=== PATIENT | female | born 1995 | race Caucasian/White ===

== ENCOUNTER 2023-04-20 23:38 | Emergency (ER) | payer MEDICAID ==
[~2023-04-20] VITALS: Ht 170.2 cm; Wt 95.3 kg
[2023-04-20 23:51] VITALS: BP_SYST 148
--- NOTE | 2023-04-21 00:01 | NUR ---
Placed in room 4 . Placed on monitor technician, blood pressure machine and pulse oximeter. To gown for exam. Side rails up. Report given to Samantha ESCALANTE.
--- NOTE | 2023-04-21 00:01 | NUR ---
ER at bedside examining patient.
[2023-04-21] MEDS ORDERED: KETOROLAC TROMETHAMINE 30 MG VIAL IM ONE (00:30)
[2023-04-21 00:55] LABS: BASOPHILS # (AUTO) 0.1 K/uL (0.0-0.2); BASOPHILS % (AUTO) 0.6 % (0.0-2.0); EOSINOPHILS # (AUTO) 0.1 K/uL (0.0-0.4); EOSINOPHILS % (AUTO) 1.3 % (0.0-4.0); HEMATOCRIT 41.1 % (36-48); HEMOGLOBIN 13.9 g/dL (12.0-16.0); LYMPHOCYTES # (AUTO) 1.7 K/uL (1.0-5.5); LYMPHOCYTES % (AUTO) 19.4 % (20.5-51.5); MEAN CORPUSCULAR HEMOGLOBIN 29 pg (27-31); MEAN CORPUSCULAR HGB CONC 34 % (32-36); MEAN CORPUSCULAR VOLUME 84 fL (79.0-98.0); MONOCYTES # (AUTO) 0.5 K/uL (0.0-1.0); MONOCYTES % (AUTO) 5.4 % (1.7-9.3); NEUTROPHILS # (AUTO) 6.3 K/uL (1.8-7.7); NEUTROPHILS % (AUTO) 73.3 % (40.0-70.0); PLATELET COUNT (AUTO) 223 K/uL (130-430); RED BLOOD CELL COUNT(AUTO) 4.88 MIL/uL (4.2-6.2); RED CELL DISTRIBUTION WIDTH 13.2 % (9.0-15.0); WHITE BLOOD COUNT (AUTO) 8.5 K/uL (4.8-10.8)
[2023-04-21 01:04] LABS: BILIRUBIN,URINE NEGATIVE (NEGATIVE); CLARITY/URINE CLEAR (CLEAR); COLOR,URINE YELLOW (YELLOW); GLUCOSE,URINE NEGATIVE (NEGATIVE); KETONES,URINE NEGATIVE (NEGATIVE); LEUKOCYTE ESTERASE ,URINE NEGATIVE (NEGATIVE); NITRITE, URINE NEGATIVE (NEGATIVE); PROTEIN URINE NEGATIVE (NEGATIVE); UROBILINOGEN,URINE 0.2 (0.2-1.0)
[2023-04-21 01:08] LABS: BLOOD, URINE TRACE (NEGATIVE)
[2023-04-21 01:12] LABS: ALANINE AMINOTRANSFERASE 23 U/L (12-78); ALBUMIN 3.5 g/dL (3.4-4.8); ANION GAP 9 (5-15); ASPARTATE AMINOTRANSFERASE 14 U/L (10-37); CALCIUM 8.4 mg/dL (8.4-11.0); CHLORIDE 106 mmol/L (98-107); CREATININE 0.88 mg/dL (0.55-1.30); GFR AFRICAN AMERICAN 98 mL/min (>90); GLUCOSE 122 mg/dL (70-99); TOTAL BILIRUBIN 0.3 mg/dL (0.0-1.0); UREA NITROGEN, BLOOD 15 mg/dL (8-21)
[2023-04-21 01:15] LABS: LIPASE 90 U/L (73-393)
[2023-04-21 01:27] LABS: BACTERIA,URINE RARE /HPF (None Seen); RBC,URINE 0-3 /HPF (0-3); WBC,URINE 0-3 /HPF (0-3)
[2023-04-21] MEDS ORDERED: HYDROcodone/ACETAMIN 5-325 MG TAB (NORCO/ VICODIN) PO ONE (02:15)
--- NOTE | 2023-04-21 02:50 | NUR ---
PT UNABLE TO RECEIVE [facility]CO DUE TO DRIVEN HERSELF TO ED. PT WAS CONNECTED CONTINUOUSLY TO VS MONITOR.
--- NOTE | 2023-04-21 02:58 | NUR ---
Patient given written and verbal discharge instructions and verbalizes understanding. ER MD discussed with patient the results and treatment provided. Patient in stable condition. ID arm band removed. Patient educated on NONSPECIFIC CHEST pain management and to follow up with PMD. Pain Scale . Opportunity for questions provided and answered. Medication side effect fact sheet provided.
[2023-04-21 04:06] VITALS: BP_SYST 148
== END 2023-04-21 04:06 | disposition home or self-care (01) ==
LOC: SED 23:38
DX: R07.9 Chest pain, unspecified (principal); R10.30 Lower abdominal pain, unspecified; M25.511 Pain in right shoulder; Z88.1 Allergy status to other antibiotic agents; Z79.899 Other long term (current) drug therapy
CPT/HCPCS: 99285; 80053; 81000; 83690; 85025; 85379; 84484; 36415; 81025; 71045; 93005; 96372; J1885

== ENCOUNTER 2023-09-11 08:36 | Emergency (ER) | payer MEDICAID ==
[~2023-09-11] VITALS: Ht 170.2 cm; Wt 97.5 kg
[2023-09-11] MEDS ORDERED: AZITHROMYCIN 250 MG TABLET PO ONE (09:00)
[2023-09-11 09:17] VITALS: BP_SYST 131; PULSE 97; RESP 20; TEMP 98; O2SAT 98
[2023-09-11] MEDS ORDERED: GUAI5SYR PO (10:25)
[2023-09-11] MEDS ORDERED: ZIT250 PO (10:25)
[2023-09-11] MEDS ORDERED: PRED20TA PO (10:25)
[2023-09-11] MEDS ORDERED: BENZ100C92 PO (10:25)
[2023-09-11] MEDS ORDERED: ALBMDI INH (10:25)
[2023-09-11 10:34] LABS: COVID19 ANTIGEN SOFIA FIA NEGATIVE (NEGATIVE)
[2023-09-11 10:35] LABS: INFLUENZA TYPE A Negative (NEGATIVE); INFLUENZA TYPE B NEGATIVE (NEGATIVE)
[2023-09-11 10:41] VITALS: BP_SYST 131; PULSE 97; RESP 20; TEMP 98; O2SAT 98
== END 2023-09-11 10:41 | disposition home or self-care (01) ==
LOC: SED 08:36
DX: J20.9 Acute bronchitis, unspecified (principal); R05.9 Cough, unspecified; R07.89 Other chest pain; R06.02 Shortness of breath; Z88.1 Allergy status to other antibiotic agents; Z79.899 Other long term (current) drug therapy; Z20.822 Contact with and (suspected) exposure to COVID-19
CPT/HCPCS: 99284; 71046; 87426; 36415; 81025; 87804 ×2; Q0144

== ENCOUNTER 2024-04-08 03:11 | Emergency (ER) | payer MEDICAID, OTHER ==
[~2024-04-08] VITALS: Ht 170.2 cm; Wt 99.8 kg
[~2024-04-08 03:11] MED LIST: ALBMDI INH; BENZ100C92 PO; GUAI5SYR PO; PRED20TA PO; ZIT250 PO
[2024-04-08 03:26] VITALS: BP_SYST 119; PULSE 92; RESP 20; TEMP 97; O2SAT 97
[2024-04-08 03:45] LABS: BILIRUBIN,URINE NEGATIVE (NEGATIVE); BLOOD, URINE NEGATIVE (NEGATIVE); CLARITY/URINE CLEAR (CLEAR); GLUCOSE,URINE NEGATIVE (NEGATIVE); KETONES,URINE NEGATIVE (NEGATIVE); LEUKOCYTE ESTERASE ,URINE NEGATIVE (NEGATIVE); NITRITE, URINE NEGATIVE (NEGATIVE); PROTEIN URINE NEGATIVE (NEGATIVE); UROBILINOGEN,URINE 0.2 (0.2-1.0)
[2024-04-08 03:47] LABS: COLOR,URINE STRAW (YELLOW)
[2024-04-08] MEDS: KETOROLAC TROMETHAMINE 30 MG VIAL IVP ONE (04:22)
[2024-04-08] MEDS: NACL 0.9% 1,000 ML IV ONE (04:23)
[2024-04-08 04:27] LABS: BASOPHILS % (AUTO) 0.4 % (0.0-2.0); EOSINOPHILS # (AUTO) 0.2 K/uL (0.0-0.4); EOSINOPHILS % (AUTO) 1.8 % (0.0-4.0); HEMATOCRIT 40.3 % (36-48); HEMOGLOBIN 13.9 g/dL (12.0-16.0); LYMPHOCYTES # (AUTO) 1.4 K/uL (1.0-5.5); LYMPHOCYTES % (AUTO) 15.8 % (20.5-51.5); MEAN CORPUSCULAR HEMOGLOBIN 29 pg (27-31); MEAN CORPUSCULAR HGB CONC 35 % (32-36); MEAN CORPUSCULAR VOLUME 84 fL (79.0-98.0); MONOCYTES # (AUTO) 0.6 K/uL (0.0-1.0); MONOCYTES % (AUTO) 6.9 % (1.7-9.3); NEUTROPHILS # (AUTO) 6.5 K/uL (1.8-7.7); NEUTROPHILS % (AUTO) 75.1 % (40.0-70.0); PLATELET COUNT (AUTO) 260 K/uL (130-430); RED BLOOD CELL COUNT(AUTO) 4.83 MIL/uL (4.2-6.2); RED CELL DISTRIBUTION WIDTH 13.7 % (9.0-15.0); WHITE BLOOD COUNT (AUTO) 8.7 K/uL (4.8-10.8)
[2024-04-08 04:51] LABS: ALBUMIN 3.6 g/dL (3.4-4.8); BILIRUBIN,DIRECT 0.1 mg/dL (0.0-0.3); CREATININE 0.91 mg/dL (0.55-1.30); POTASSIUM 3.7 mmol/L (3.5-5.1); TOTAL BILIRUBIN 0.4 mg/dL (0.0-1.0); TOTAL PROTEIN, SERUM 6.9 g/dL (6.4-8.3)
[2024-04-08 05:11] VITALS: BP_SYST 119; PULSE 92; RESP 20; TEMP 97; O2SAT 97
== END 2024-04-08 05:11 | disposition home or self-care (01) ==
LOC: SED 03:11
DX: R10.9 Unspecified abdominal pain (principal); R11.0 Nausea; F32.A Depression, unspecified; Z88.1 Allergy status to other antibiotic agents; Z98.890 Other specified postprocedural states; Z79.899 Other long term (current) drug therapy; Z79.2 Long term (current) use of antibiotics
CPT/HCPCS: 99285; 74176; 96374; 96361; 80076; 80048; 81001; 85025; 87040; 36415; 83605; J1885; J7030; 81003